=== PATIENT | female | born 1995 | race African-American/Black ===

== ENCOUNTER 2022-10-15 12:04 | Emergency (ER) | payer MEDICAID, OTHER ==
[~2022-10-15] VITALS: Ht 165.1 cm; Wt 72.6 kg
[2022-10-15 12:20] VITALS: BP 139/103
--- NOTE | 2022-10-15 12:30 | NUR ---
27/F WALKED IN REFERRED BY [facility]RGENT [facility]ARE D/T GENERALIZED RASH ALL OVER BODY ONSET 3 DAYS ACCOMPANIED BY ELEVATED BP OF 194/124 AT URGENT CARE. PT BP AT TRIAGE 139/103. PT REPORTS HAVING EKG DONE AND WAS GIVEN BP MED OF UNK AND WAS TOLD TO GO TO ER FOR EVALUATION. PT REPORTS ONLY COMPLAINT OF RASH AT THIS TIME. DENIES CP OR DIZZINESS AT THIS TIME. PMH: DENIES
[2022-10-15] MEDS ORDERED: BACTO TP (13:21)
[2022-10-15] MEDS ORDERED: CEPH-588 PO (13:21)
== END 2022-10-15 13:55 | disposition home or self-care (01) ==
LOC: MED 12:04
DX: L01.00 Impetigo, unspecified (principal); Z79.2 Long term (current) use of antibiotics
CPT/HCPCS: 99283